=== PATIENT | female | born 1975 | race Caucasian/White ===

== ENCOUNTER → 2021-03-16 15:50 | Outpatient (CLI) | payer BC, SELFPAY ==
--- NOTE | 2021-03-16 | DI.MRI.S_ITS ---
PROCEDURE: MR LUMBAR SPINE WO CON INDICATIONS: lumbar pain TECHNIQUE: Noncontrast sagittal T1 spin echo and T2 fast echo, sagittal STIR, axial T1 and T2 fast spin echo through the lumbar spine. In cases with scoliosis, additional coronal T2 fast spin echo may be performed. COMPARISON: [facility] [place], CR, XR LUMBAR SPINE WITH OLBIQUES PLUS FLEXION EXTENSION, 03/01/2021, 14:39. FINDINGS: Image quality: Excellent. Alignment and Curvature: 5 lumbar type vertebral bodies are present by plain film. Loss of normal lumbar lordosis is present. Mild grade 1 retrolisthesis of L4 on L5. Bone Marrow: Marrow is of normal overall signal. No acute vertebral body compression fractures. Minimal reactive signal within the endplates adjacent to the L3-L4 and L4-L5 intervertebral discs. Spinal Cord: Conus medullaris terminates at the L2-L3 disc space level. Visualized cord demonstrates normal signal and size. Paraspinous Soft Tissues: No paravertebral masses. T12-L1: Normal appearance. L1-L2: Normal appearance. L2-L3: Normal appearance. L3-L4: Mild disc desiccation. Mild facet and ligamentum flavum hypertrophy. Mild canal stenosis. Mild bilateral foraminal stenosis. L4-L5: Mild disc desiccation and diffuse disc bulge. Mild facet and ligamentum flavum hypertrophy. Mild canal stenosis. Mild bilateral foraminal stenosis. L5-S1: Mild disc desiccation and diffuse disc bulge. No significant canal stenosis. Moderate subarticular foraminal stenosis. IMPRESSION: 1. Multilevel degenerative disc and facet disease, as well as ligamentum flavum hypertrophy and epidural lipomatosis. 2. Mild multilevel canal stenosis. 3. Multilevel foraminal stenosis, worst at L4-L5 bilaterally where there are moderate foraminal stenosis present. Dictated by: Ai Short M.D. on 03/16/2021 at 16:42 Approved by: Ai Short M.D. on 03/16/2021 at 16:44
== END ==
PROVIDERS: Referring Provider Physical Medicine & Rehabilitation Pain Medicine; Visit Provider Physical Medicine & Rehabilitation Pain Medicine
DX: M51.36 Other intervertebral disc degeneration, lumbar region (principal); M47.26 Other spondylosis with radiculopathy, lumbar region; M48.061 Spinal stenosis, lumbar region without neurogenic claudication
CPT/HCPCS: 72148

== ENCOUNTER 2021-03-16 18:30 | Emergency (ER) | payer BC, SELFPAY ==
[2021-03-16 18:38] VITALS: BP 131/60; PULSE 76; RESP 16; TEMP 36.6; O2SAT 97
--- NOTE | 2021-03-16 19:49 | ED_ITS ---
HPI - Back Pain/Injury General Chief Complaint: Back Pain/Injury Stated Complaint: LOW BACK PAIN Time Seen by Provider: 03/16/21 18:33 Source: patient Mode of arrival: Ambulatory Limitations: no limitations History of Present Illness HPI Narrative: 45-year-old female nonsmoker presents with a chief complaint of an exacerbation of her chronic back pain over the past few days. She has been having issues ever since weightlifting about 1 year ago in which she suffered bulging discs and radicular symptoms that had been managed by local orthopedist. A few days ago she was bending, lifting and twisting when she felt a pull in her back and now has significant lower back pain with radiation into her left leg. Motion worsens the pain and rest improves it. She denies any numbness, tingling or weakness. She denies any footdrop or trouble controlling bowel or bladder. She takes no blood thinners, denies any history of IV drug abuse. She had obtained an outpatient lumbar MRI just prior to her arrival. She is not currently taking any medications for her pain MD Complaint: back pain Onset (ago): day(s) Duration: constant Similar Symptoms Previously: Yes Location: lumbar spine Severity: severe Quality: sharp and stabbing Radiation: left leg Severity scale (1-10): 7 Exacerbating factors: movement Context: while lifting, turning/twisting and bending Associated symptoms: difficulty walking Related Data Previous Rx's Medication Instructions Recorded gabapentin 300 mg PO BEDTIME #14 cap 03/16/21 hydrocodone-acetaminophen 1 tab PO Q4-6H PRN #10 tab 03/16/21 ketorolac 10 mg PO Q6H PRN #14 tab 03/16/21 methylprednisolone [Medrol (Mayank)] See Rx Instructions .ROUTE 03/16/21 .COMPLEX #21 ea Review of Systems Constitutional Constitutional: Denies chills, Denies fatigue, Denies fever(s), Denies frequent falls, Denies lethargy and Denies weakness Eyes Eyes: Denies change in vision, Denies eye discharge, Denies irritation and Denies loss of vision ENT Ears, Nose, Mouth, and Throat: Denies change in voice, Denies dizziness, Denies neck pain, Denies sore throat and Denies throat swelling Cardiovascular Cardiovascular: Denies chest pain, Denies irregular heart rhythm, Denies lighth eadedness, Denies palpitations, Denies dyspnea, Denies dyspnea on exertion and Denies orthopnea Respiratory Respiratory: Denies cough, Denies dyspnea, Denies dyspnea on exertion and Denies wheezing Gastrointestinal Gastrointestinal: Denies abdominal pain, Denies change in bowel habits, Denies diarrhea, Denies nausea and Denies vomiting Musculoskeletal Musculoskeletal: Reports back pain, Denies neck pain and Denies numbness Integumentary/Breasts Skin/Breast: Denies pruritus, Denies erythema, Denies rash and Denies wounds Neurologic Neurologic: Denies behavioral changes, Denies confusion, Denies dizziness, Denies frequent falls, Denies loss of vision, Denies numbness and Denies weakness Psychiatric Psychiatric: Denies anxiety, Denies behavioral changes, Denies confusion, Denies depression, Denies homicidal ideation and Denies suicidal ideation Endocrine Endocrine: Denies fatigue, Denies flushing and Denies palpitations Hematologic/Lymphatic Hematologic/Lymphatic: Denies easy bruising Allergic/Immunologic Allergic/Immunologic: Denies urticaria, Denies throat swelling and Denies wheezing Patient History Smoking Status: Never smoker alcohol intake frequency: 0-2 drinks per day Substance Use Type: does not use Exam Narrative Exam Narrative: GEN: AOx3 and in mild distress EYES: Pupils are equal, round, and reactive to light and accommodation. Extraoccular muscles are intact bilaterally. There is no subconjunctival hemorrhage or exudate. CHEST: Lungs are clear to auscultation bilaterally and free of wheezes, rales, or rhonchi. Heart rate is regular rhythm, there are no murmurs, clicks, rubs, or gallops. There is no chest wall tenderness. ABD: Abdomen is soft and nontender. There is no guarding or rebound. Bowel sounds are normal in all 4 quadrants. There is no mass or organomegaly. BACK: pulper tender but free of any obvious external abnormalities. Patient exam notes decreased range of motion and muscle spasm, but no CVA tenderness, or vertebral point tenderness. There are no symptoms of cauda equina such as saddle anesthesia, and decreased reflexes, decreased sensation or strength. EXT: Full painless ROM of all extremities with no loss of sensation or strength. SKIN: Warm, pink, and dry. No erythema or rash Initial Vital Signs Initial Vital Signs: Vital Signs Temperature 97.9 F 03/16/21 18:38 Pulse Rate 76 03/16/21 18:38 Respiratory Rate 16 03/16/21 18:38 Blood Pressure 131/60 03/16/21 18:38 Pulse Oximetry 97 03/16/21 18:38 Course Orders Ordered: Discontinued Medications Hydrocodone Bitart/Acetaminophen (Hydrocodone/Acet 5/325 Prepack) 1 bottle MISC SEEINSTR ONE Stop: 03/16/21 19:56 Last Admin: 03/16/21 20:06 Dose: 1 bottle Documented by: KRISTINE Hydromorphone HCl (Hydromorphone 1 Mg Inj) 1 mg IM NOW ONE Stop: 03/16/21 19:56 Last Admin: 03/16/21 20:06 Dose: 1 mg Documented by: KRISTINE Vital Signs Vital signs: Vital Signs - 8 hr 03/16/21 20:13 Pulse Rate 78 Respiratory Rate 18 Blood Pressure 120/71 Pulse Oximetry 100 MDM - Back Pain/Injury Imaging Data Lumbar MRI: Radiologist's Impression: Kassie Alfaro 45 F [address] [id number] Resonance ReportSigned Patient: KASSIE ALFAROMR#: [id number]: 1975Acct:[id number]/Sex: 45 / FDate of Service: 03/16/21Loc: MRIAccession Number: [id number] Procedure: MR lumbar spine wo con Ordering Provider: Ab Terry MD PROCEDURE: MR LUMBAR SPINE WO CON INDICATIONS: lumbar pain TECHNIQUE: Noncontrast sagittal T1 spin echo and T2 fast echo, sagittal STIR, axial T1 and T2 fast spin echo through the lumbar spine. In cases with scoliosis, additional coronal T2 fast spin echo may be performed. COMPARISON: [facility] [place], CR, XR LUMBAR SPINE WITH OLBIQUES PLUS FLEXION EXTENSION, 03/01/2021, 14:39. FINDINGS: Image quality: Excellent. Alignment and Curvature: 5 lumbar type vertebral bodies are present by plain film. Loss of normal lumbar lordosis is present. Mild grade 1 retrolisthesis of L4 on L5. Bone Marrow: Marrow is of normal overall signal. No acute vertebral body compression fractures. Minimal reactive signal within the endplates adjacent to the L3-L4 and L4-L5 intervertebral discs. Spinal Cord: Conus medullaris terminates at the L2-L3 disc space level. Visualized cord demonstrates normal signal and size. Paraspinous Soft Tissues: No paravertebral masses. T12-L1: Normal appearance. L1-L2: Normal appearance. L2-L3: Normal appearance. L3-L4: Mild disc desiccation. Mild facet and ligamentum flavum hypertrophy. Mild canal stenosis. Mild bilateral foraminal stenosis. L4-L5: Mild disc desiccation and diffuse disc bulge. Mild facet and ligamentum flavum hypertrophy. Mild canal stenosis. Mild bilateral foraminal stenosis. L5-S1: Mild disc desiccation and diffuse disc bulge. No significant canal stenosis. Moderate subarticular foraminal stenosis. IMPRESSION: 1. Multilevel degenerative disc and facet disease, as well as ligamentum flavum hypertrophy and epidural lipomatosis. 2. Mild multilevel canal stenosis. 3. Multilevel foraminal stenosis, worst at L4-L5 bilaterally where there are moderate foraminal stenosis present. Dictated by: Ai Short M.D. on 03/16/2021 at 16:42 Approved by: Ai Short M.D. on 03/16/2021 at 16:44 [facility] Narrative Medical decision making narrative: Patient with known back trouble seems to have re-injured herself. She has no red flag findings concerning for neuro surgical emergency such as saddle anesthesia, loss of control of bowel or bladder, footdrop, lower extremity weakness, IV drug abuse, fever, use of blood thinners. She has just completed a lumbar MRI which shows multilevel disc disease and facet disease. Extensive return precautions given to the patient, questions answered to her apparent satisfaction Discharge Plan Departure Patient Disposition: Home Clinical Impression: Acute left lumbar radiculopathy Instructions: DI for Lumbar Radiculopathy Activity Restrictions/Additional Instructions: *You have been diagnosed with [acute on chronic lumbar pain with radiculopathy.] *What to do: *Take medications as directed: Prescriptions electronically transmitted to [facility] ([place], [place]) at your request *Follow up with your primary care provider in 2-3 days, call for an appointment. Let them know you were seen in the Emergency Department and that we ask that you be seen in follow up *Return to ER if you should have any new, worsening or concerning symptoms, such as [increasing pain, weakness, trouble controlling bowel or bladder, fever greater than 101 F or other bothersome symptoms You have been prescribed narcotic medications. While on these medications you cannot drive or operate heavy machinery. Additionally you cannot sign legal documents or perform any duties such as this. Many people get constipated on narcotic medications so it would be advisable to discuss stool softeners with the pharmacist when you pickle processor your prescription. Please understand that we cannot provide further refills of narcotics or controlled substances through the ED and your pain management will need to be through your Primary Care Provider] Prescriptions: New hydrocodone-acetaminophen 5-325 mg tablet 1 tab PO Q4-6H PRN (Reason: pain) Qty: 10 RF: 0 ketorolac 10 mg tablet 10 mg PO Q6H PRN (Reason: pain) Qty: 14 RF: 0 gabapentin 300 mg capsule 300 mg PO BEDTIME Qty: 14 RF: 0 methylprednisolone [Medrol (Mayank)] 4 mg tablets,dose pack See Rx Instructions .ROUTE .COMPLEX Qty: 21 RF: 0
[2021-03-16] MEDS: HYDROMORPHONE 1 MG INJ IM (20:06)
[2021-03-16] MEDS: HYDROCODONE/ACET 5/325 PREPACK 1 BOTTLE MISC (20:06)
[2021-03-16 20:13] VITALS: BP 120/71; PULSE 78; RESP 18; O2SAT 100
== END 2021-03-16 20:15 | disposition home or self-care (01) ==
PROVIDERS: Emergency Provider Emergency Medicine
DX: M54.16 Radiculopathy, lumbar region (principal)
CPT/HCPCS: 96372; 99283; J1170

== ENCOUNTER → 2022-07-06 15:50 | Outpatient (CLI) | payer BC, SELFPAY ==
--- NOTE | 2022-07-06 15:56 | DI.MRI.S_ITS ---
PROCEDURE: MR LUMBAR SPINE WO CON INDICATIONS: RADICULOPATHY, LUMBAR REGION TECHNIQUE: Noncontrast sagittal T1 spin echo and T2 fast echo, sagittal STIR, and T2 fast spin echo through the lumbar spine. In cases with scoliosis, additional coronal T2 fast spin echo may be performed. COMPARISON: [facility], MR, MR LUMBAR SPINE WO CON, 03/16/2021, 16:06. FINDINGS: Image quality: Excellent. Alignment and Curvature: 5 lumbar type vertebral bodies are present by plain film. There is loss of normal lumbar lordosis. 2 mm of retrolisthesis of L4 on L5, as before. Bone Marrow: Marrow is of normal overall signal. No acute vertebral body compression fractures. Mild reactive signal throughout the endplates of the lumbar spine. Hemangioma within the right L3 pedicle, as before. Spinal Cord: Conus medullaris terminates at the mid L2 level. Visualized cord demonstrates normal signal and size. Paraspinous Soft Tissues: No paravertebral masses. T12-L1: Normal appearance. L1-L2: Normal appearance. L2-L3: Normal appearance. L3-L4: Mild disc desiccation. Mild facet and ligamentum flavum hypertrophy. Mild canal stenosis. Mild bilateral foraminal stenosis. No significant change. L4-L5: Mild disc desiccation. Mild diffuse disc bulge. Mild facet and ligamentum flavum hypertrophy. Mild canal stenosis and mild bilateral foraminal stenosis. No significant change. L5-S1: Mild disc desiccation and diffuse disc bulge. No significant canal stenosis. Moderate subarticular foraminal stenosis bilaterally. No significant change. IMPRESSION: 1. Multilevel degenerative disc and facet disease, as well as ligamentum flavum hypertrophy and epidural lipomatosis. 2. Mild multilevel canal stenoses. 3. Multilevel foraminal stenoses, worst at L4-L5 where there are moderate foraminal stenoses bilaterally. Dictated by: Ai Short M.D. on 07/06/2022 at 16:43 Transcribed by: YAZMIN on 07/06/2022 at 16:46 Approved by: Ai Short M.D. on 07/06/2022 at 17:01
== END ==
PROVIDERS: PCP Obstetrics & Gynecology; Referring Provider Physical Medicine & Rehabilitation; Visit Provider Physical Medicine & Rehabilitation
DX: M51.16 Intervertebral disc disorders with radiculopathy, lumbar region (principal); M51.17 Intervertebral disc disorders with radiculopathy, lumbosacral region; M47.26 Other spondylosis with radiculopathy, lumbar region; M47.27 Other spondylosis with radiculopathy, lumbosacral region; M48.061 Spinal stenosis, lumbar region without neurogenic claudication; M48.07 Spinal stenosis, lumbosacral region
CPT/HCPCS: 72148

== ENCOUNTER → 2023-05-29 16:07 | Outpatient (CLI) | payer OTHER, SELFPAY ==
--- NOTE | 2023-05-29 | DI.MG.S_ITS ---
BILATERAL DIGITAL SCREENING MAMMOGRAM 3D/2D WITH CAD: 05/29/2023 CLINICAL: Baseline exam. Routine screening. No prior exams were available for comparison. Both breasts are heterogeneously dense, which may obscure small masses (category c / 51-75% glandular tissue). Current study was also evaluated with a Computer Aided Detection (CAD) system. There is an asymmetry in the right breast central to the nipple in the retroareolar region. There is nipple retraction associated with the asymmetry. No other significant masses, calcifications, or other findings are seen in either breast. IMPRESSION: INCOMPLETE: NEEDS ADDITIONAL IMAGING EVALUATION The asymmetry in the right breast is indeterminate. Additional views with possible ultrasound are recommended. Based on the Tyrer Cuzick model (a risk assessment model) the patient's lifetime risk is 14.4% and her 10 year risk is 3.3%. According to the ACR, ACS, and NCCN guidelines, an annual breast MRI exam along with mammogram is recommended if the patient's lifetime risk is 20% or greater. This exam was interpreted at Station ID: [id number]. NOTE: For mammograms, a report in lay terms will be sent to the patient. Approximately 15% of breast malignancies will not be visualized mammographically. In the management of a palpable breast mass, a negative mammogram must not discourage biopsy of a clinically suspicious lesion. Electronically Signed By: Evelyn nascimento/osbaldo:05/30/2023 11:12:34 letter sent: Additional Imaging Needed ACR BI-RADS Category 0: Incomplete [id number]
--- NOTE | 2023-05-29 | DI.US.S_ITS ---
PROCEDURE: US PELVIC COMPLETE INDICATIONS: ROUTINE SCREENING;PELVIC AND PERINEAL PAIN TECHNIQUE: Real-time scanning was performed of the pelvic organs, with image documentation. Additional endovaginal scanning was necessary due to incomplete visualization of the adnexal and endometrial structures by transabdominal scanning. COMPARISON: [facility], US, US PELVIC COMPLETE, 12/20/2021, 15:56. FINDINGS: Uterus: Uterus is anteverted and normal in size at 8.5 x 7.8 x 4.5 cm. The myometrium is heterogeneous. The endometrium is not well evaluated. Several uterine fibroids. For example: Mid fundal intramural measuring 4.8 x 4.3 x 3.9 cm. Left anterior intramural measuring 2.8 x 2.5 x 2.2 cm. Left posterior intramural measuring 2.5 x 2.5 x 2 cm. Ovaries: Ovaries are not identified. No obvious cystic lesion. Other: No pathologic free abdominal or pelvic fluid. IMPRESSION: 1. Enlarged uterus with several fibroids. Largest fibroid measures 4.8 cm. 2. Ovaries are not seen. No free fluid. We strive to produce accurate, complete, and clear reports of imaging services. To assist us in improving patient care, this report was composed using standard report templates and voice recognition software. Therefore, it may contain abnormal punctuation, insertions and/or omissions. Occasional wrong-word or sound-alike substitutions may occur. Though we review the report and make efforts to correct it, we do recommend that the report be read carefully in proper context to recognize any text inaccuracies. Dictated by: David Reyes M.D. on 05/30/2023 at 14:22 Approved by: David Reyes M.D. on 05/30/2023 at 14:26
== END ==
PROVIDERS: PCP Obstetrics & Gynecology; Referring Provider Naturopath; Visit Provider Naturopath
DX: R10.2 Pelvic and perineal pain (principal); Z12.31 Encounter for screening mammogram for malignant neoplasm of breast; D25.1 Intramural leiomyoma of uterus
CPT/HCPCS: 76830; 76856; 77063; 77067

== ENCOUNTER 2023-10-02 17:34 | Emergency (ER) | payer OTHER, SELFPAY ==
[2023-10-02] VITALS (7 sets, daily range): BP systolic 97–139; BP diastolic 60–70; PULSE 61–76; RESP 16–21; TEMP 36.7; O2SAT 95–99; BMI 23.3
--- NOTE | 2023-10-02 17:42 | DI.RAD.S_ITS ---
PROCEDURE: XR CHEST 1V INDICATIONS: chest pain TECHNIQUE: One view of the chest was acquired. COMPARISON: None. FINDINGS: Surgical changes and devices: None. Lungs and pleura: Lungs are clear. No pleural effusions or pneumothorax. Mediastinum: Mediastinal contours appear normal. Heart size is normal. Bones and chest wall: No suspicious bony lesions. Overlying soft tissues appear unremarkable. IMPRESSION: No acute process. Dictated by: Ai Short M.D. on 10/02/2023 at 18:16 Approved by: Ai Short M.D. on 10/02/2023 at 18:16
--- NOTE | 2023-10-02 18:10 | PC.NURSE ---
Pt reports that she woke up this morning at about 0300 because she felt sudden onset cp. pt denies any sob at the time of incident or at this time. pt also reports that the bad radiates to her abd. a&ox4.
[2023-10-02 18:17] LABS: Prothrombin Time 11.6 SECONDS (10.1-12.7)
[2023-10-02] MEDS: ASPIRIN 81 MG CHEW TAB 324 MG PO (18:17)
[2023-10-02 18:19] LABS: PTT Partial Thromboplastin Tim 34 SECONDS (26-36)
[2023-10-02 18:20] LABS: Add Manual Diff / Slide Review NO; Basophils Absolute Auto 0 /uL (0-100); Basophils Percent Auto 0.9 % (0-2); Eosinophils Absolute Auto 100 /uL (0-450); Eosinophils Percent Auto 1.1 % (2-4); Hematocrit 40.7 % (36-46); Hemoglobin 13.9 g/dL (12.0-16.0); Lymphocytes Absolute Auto 2000 /uL (1100-4500); Lymphocytes Percent Auto 40.9 % (25-40); Mean Corpuscular HGB Conc 34.1 % (30-36); Mean Corpuscular Hemoglobin 31.6 PG (26-34); Mean Corpuscular Volume 92.6 fL (80-100); Monocytes Absolute Auto 300 /uL (0-900); Monocytes Percent Auto 6.5 % (3-14); Neutrophils Absolute Auto 2500 /uL (1500-7000); Neutrophils Percent Auto 50.6 % (50-75); Platelet Count 208 X10^3/uL (150-400); Red Cell Distribution Width 12.7 % (11.6-14.8)
[2023-10-02 18:26] LABS: Alanine Aminotransferase 17 IU/L (<35); Albumin Globulin Ratio 1.7 (1.0-2.8); Alkaline Phosphatase 68 U/L (38-126); Aspartate Aminotransferase 24 IU/L (14-36); BUN Creatinine Ratio 19.6 (6-22); Bilirubin Total 0.7 mg/dL (0.2-1.3); Blood Urea Nitrogen 11 mg/dL (7-17); Calcium 9.9 mg/dL (8.4-10.2); Carbon Dioxide 28 mmol/L (22-32); Chloride 101 mmol/L (98-107); Creatine Kinase 150 U/L (30-135); Estimated Glomerular Filt Rate > 60 mL/min (>60); Glucose 128 mg/dL (70-100); HEMOLYSIS < 15 (0-50); Lipase 58 U/L (23-300); Magnesium 1.9 mg/dL (1.6-2.3); Potassium 3.5 mmol/L (3.4-5.1); Sodium 138 mmol/L (137-145)
[2023-10-02 18:37] LABS: Troponin I < 0.012 ng/mL (0.01-0.034)
--- NOTE | 2023-10-02 21:16 | ED_ITS ---
HPI - Chest Pain General Chief Complaint: Chest Pain Stated Complaint: chest pain/pressure/hard to breathe Time Seen by Provider: 10/02/23 18:09 Mode of arrival: Family Vehicle History of Present Illness HPI narrative: 48-year-old woman who leads an active lifestyle, focuses on healthy eating and risk reduction techniques and sees a finishing operator for her primary care. She is currently on an estradiol patch and has no specific complaints or concerns until last night. She was awakened with some pressure/tightness over the center portion of her chest that has persisted over the course of the day today. It is not seemingly related to activity, food, positional changes. She has not noticed fevers, cough, chills. She notes that she does have problems with intermittent constipation and diarrhea and is doing all appropriate interventions with diet and probiotics to try to further manage this. She does note that she was able to exercise without difficulty including doing pushups yesterday Related Data Previous Rx's Medication Instructions Recorded estradiol 0.0375 mg/24 hr weekly 1 patch transdermal QWEEK 07/05/23 transdermal patch Menopause symptoms #4 ea Allergies Allergy/AdvReac Type Severity Reaction Status Date / Time No Known Drug Allergies Allergy Unverified 10/02/23 17:41 Review of Systems Review of Systems Narrative: Pertinent positive and negative findings as per HPI Patient History Medical History Anxiety Herniated disc Chronic back pain Irregular menstrual cycle (~2018) Human papilloma virus (~2019) Ovarian cyst Endometriosis (~2009) Abnormal Pap smear of cervix (~2019) Cystic fibrosis Constipation Irritable bowel syndrome Colon polyps AAA (abdominal aortic aneurysm) Ovarian cancer (~2017) Fibroid uterus (~2019) Surgical History Anesthesia History of laparoscopy (~2017) History of endometrial ablation (~2019) Family History Father Colon cancer Mental health problem Mother History of heart disease Hypertension Grandmother Cancer Grandfather Cancer Social History Smoking Status: Never smoker Smoking Status: Never smoker alcohol intake frequency: other Substance Use Type: does not use Exam Initial Vital Signs Initial Vital Signs: Vital Signs Temperature 98.0 F 10/02/23 17:37 Pulse Rate 76 10/02/23 17:37 Respiratory Rate 16 10/02/23 17:37 Blood Pressure 139/65 10/02/23 17:37 Pulse Oximetry 99 10/02/23 17:37 Oxygen Delivery Method Room Air 10/02/23 17:37 General: Healthy appearing, in no acute distress. Able to give a complete and coherent history. Well-nourished well-developed HEENT: Moist mucous membranes, normal sclera with reactive pupils, Neck: No JVD, supple Respiratory: Lungs are clear to auscultation, no wheezing no rales no rhonchi. Full and symmetrical air movement Chest: Minor tenderness to palpation along costochondral margins bilaterally that does completely reproduce the pain of which she complains Cardiac: Regular rate and rhythm no murmurs no bruits Abdomen: Soft, nontender, good bowel tones, no flank pain Skin: Warm and dry, no rashes Neurologic: Grossly neurologically intact with no obvious asymmetries or abnormalities Extremities: No trauma, well perfused Psych: Cooperative, appropriate insight and affect Course Orders Ordered: ED Orders 10/02/23 17:42 XR chest 1V Stat EKG-12 Lead Stat 10/02/23 18:02 Complete Blood Count AUTO DIFF Stat Comprehensive Metabolic Panel Stat Lipase Stat Magnesium Stat PTT Partial Thromboplastin Riaz Stat Prothrombin Time INR Stat Troponin & CK Cardiac Panel Stat Discontinued Medications Aspirin (Aspirin 81 Mg Chew Tab) 324 mg PO NOW ONE Stop: 10/02/23 17:43 Last Admin: 10/02/23 18:17 Dose: 324 mg Documented By: MPO Vital Signs Vital signs: Vital Signs - 8 hr 10/02/23 17:37 10/02/23 20:00 10/02/23 20:15 Temperature 98.0 F Pulse Rate 76 61 61 Respiratory Rate 16 21 20 Blood Pressure 139/65 Pulse Oximetry 99 98 Oxygen Delivery Method Room Air 10/02/23 20:15 10/02/23 20:30 10/02/23 20:30 Temperature Pulse Rate 61 Respiratory Rate 20 Blood Pressure 100/65 97/63 Pulse Oximetry 95 Oxygen Delivery Method 10/02/23 21:00 10/02/23 21:00 Temperature Pulse Rate 61 Respiratory Rate 20 Blood Pressure 98/60 Pulse Oximetry 97 Oxygen Delivery Method MDM - Chest Pain Lab Data 10/02/23 18:02 10/02/23 18:02 Labs: Lab Results 10/02/23 Range/Units 18:02 WBC 5.0 (4.5-11.0) X10^3/uL RBC 4.40 (4.0-5.2) X10^6/uL Hgb 13.9 (12.0-16.0) g/dL Hct 40.7 (36-46) % MCV 92.6 (80-100) fL MCH 31.6 (26-34) PG MCHC 34.1 (30-36) % RDW 12.7 (11.6-14.8) % Plt Count 208 (150-400) X10^3/uL Neut % (Auto) 50.6 (50-75) % Lymph % (Auto) 40.9 H (25-40) % Bracken % (Auto) 6.5 (3-14) % Eos % (Auto) 1.1 L (2-4) % Baso % (Auto) 0.9 (0-2) % Neut # (Auto) 2500 (9697-3361) /uL Lymph # (Auto) 2000 (4571-2803) /uL Bracken # (Auto) 300 (0-900) /uL Eos # (Auto) 100 (0-450) /uL Baso # (Auto) 0 (0-100) /uL PT 11.6 (10.1-12.7) SECONDS INR 1.0 (0.9-1.3) APTT 34 (26-36) SECONDS Sodium 138 (137-145) mmol/L Potassium 3.5 (3.4-5.1) mmol/L Chloride 101 (98-107) mmol/L Carbon Dioxide 28 (22-32) mmol/L BUN 11 (7-17) mg/dL Creatinine 0.56 (0.52-1.04) mg/dL Estimated GFR > 60 (>60) mL/min BUN/Creatinine Ratio 19.6 (6-22) Glucose 128 H (70-100) mg/dL Calcium 9.9 (8.4-10.2) mg/dL Magnesium 1.9 (1.6-2.3) mg/dL Total Bilirubin 0.7 (0.2-1.3) mg/dL AST 24 (14-36) IU/L ALT 17 (<35) IU/L Alkaline Phosphatase 68 (38-126) U/L Total Creatine Kinase 150 H (30-135) U/L Troponin I < 0.012 (0.01-0.034) ng/mL Total Protein 8.0 (6.3-8.2) g/dL Albumin 5.0 (3.5-5.0) g/dL Globulin 3.0 (1.7-4.1) g/dL Albumin/Globulin Ratio 1.7 (1.0-2.8) Lipase 58 (23-300) U/L MDM Narrative Medical decision making narrative: CC: Central chest pain and pressure Data collected from: patient, Differential considered: Cardiac chest pain, musculoskeletal pain, constipation, esophageal abnormalities Exam documented above, pertinent findings include: Pain is reproducible with palpation along caused sternal borders. Remainder of exam is benign Lab Test results independently reviewed as above. Pertinent findings: CBC is unremarkable Chemistries are reassuring Total creatinine kinase is slightly elevated at 150 with normal upper limit being 135 Initial troponin is undetectable Independently reviewed EKG shows sinus rhythm at a rate of 84. Some nonspecific anterior ST changes without overt ischemia Imaging studies independently reviewed: Chest x-ray is entirely reassuring Treatments: IV Toradol Discussion: 48-year-old woman with almost 20 hours of chest pain and pressure with unremarkable EKG and negative troponin. Remainder of blood work is reassuring. She does not have a significant family history of cardiac disease. She is currently working with a finishing operator, has not appropriate BMI of 23, exercises regularly. With pain reproduced by palpation along the sternal borders I do not think that this has a cardiac etiology or even a GI etiology. She is given a shot of Toradol and suggested that she try ibuprofen or Tylenol. She does already have an outpatient appointment with Cardiology scheduled and I encouraged her to keep this for additional discussion and help with cardiac risk stratification. This point she is safe for discharge Discharge Plan Departure Patient Disposition: Home Clinical Impression: Acute costochondritis Instructions: DI for Costochondritis Activity Restrictions/Additional Instructions: Thank you for coming in today Your symptoms were very appropriate for a more thorough evaluation. Fortunately all of your blood work was reassuring. I am not seeing any evidence of acute heart attack, cardiomyopathy, pneumonia, collapsed lungs or other life- threatening things that would be causing this pressure that you are experiencing. With the tenderness along your breastbone on both sides, I suspect part of the pain is related to costochondritis. This is inflammation in the joints where the ribs operations supervisor chemical cleaning to the breastbone. In the emergency department you are given a dose of Toradol to see if this might be helpful over the course of the evening. Using 400 mg of ibuprofen (2 lqra-[id number]-[id number] pills) and 1 Tylenol every 6 hours can be very helpful in controlling pain. I do agree with continuing the outpatient workup to see a 911 emergency dispatcher and I think Dr. Black is an outstanding choice. Based on what you are telling me you been doing with your overall health it sounds like your finishing operator is also doing an excellent job as a primary care provider. If you find that you are getting worse or develop any new symptoms, please feel free to return to the emergency department for further evaluation. Prescriptions: No Action estradiol 0.0375 mg/24 hr patch weekly 1 patch transdermal QWEEK Qty: 4 1RF Referrals: Miscellaneous,Doctor, [Primary Care Provider] - Stand Alone Forms: Patient Portal/API
[2023-10-02] MEDS: KETOROLAC 30 MG/ML VIAL 15 MG IV (21:36)
== END 2023-10-02 21:43 | disposition home or self-care (01) ==
PROVIDERS: Emergency Medicine; Emergency Provider Emergency Medicine
DX: M94.0 Chondrocostal junction syndrome [Tietze] (principal)
CPT/HCPCS: 36415; 71045; 80053; 82550; 83690; 83735; 84484; 85025; 85610; 85730; 93005; 93010; 96374; 99284; J1885

== ENCOUNTER → 2024-05-13 14:59 | Outpatient (CLI) | payer OTHER, SELFPAY ==
--- NOTE | 2024-05-13 15:00 | DI.RAD.S_ITS ---
PROCEDURE: XR FOOT LT MIN 3V INDICATIONS: Left foot pain TECHNIQUE: 3 views of the foot were acquired. COMPARISON: [facility], CR, XR ANKLE LT MIN 3V, 05/13/2024, 14:05. FINDINGS: Bones: Question fracture in the superior aspect of the anterior process of the calcaneus. Mild metatarsus adductus and hallux valgus. Mild degenerative joint disease at the 1st metatarsophalangeal joint. No dislocations. No suspicious bony lesions. Soft tissues: No tibiotalar joint effusion. Achilles tendon appears normal. IMPRESSION: 1. Question fracture of the anterior process of calcaneus. 2. Mild degenerative joint disease. Dictated by: Syeda Mitchell M.D. on 05/13/2024 at 16:29 Approved by: Syeda Mitchell M.D. on 05/13/2024 at 16:30
--- NOTE | 2024-05-13 15:00 | DI.RAD.S_ITS ---
PROCEDURE: XR ANKLE LT MIN 3V INDICATIONS: Left foot pain TECHNIQUE: 3 views of the ankle were acquired. COMPARISON: [facility], , XR FOOT LT MIN 3V, 05/13/2024, 14:07. FINDINGS: Bones: Question nondisplaced fracture in the anterior process of calcaneus. No dislocations. Ankle mortise is normally aligned. No suspicious bony lesions. Soft tissues: No tibiotalar joint effusion. Achilles tendon appears normal. IMPRESSION: Question nondisplaced fracture in the anterior process of calcaneus. Consider advanced imaging such as CT or MRI for further evaluation. Dicted by: Syeda Mitchell M.D. on 05/13/2024 at 16:25 Approved by: Syeda Mitchell M.D. on 05/13/2024 at 16:28
== END ==
PROVIDERS: Referring Provider Nurse Practitioner Family; Visit Provider Nurse Practitioner Family
DX: M19.072 Primary osteoarthritis, left ankle and foot (principal); M79.672 Pain in left foot
CPT/HCPCS: 73610; 73630

== ENCOUNTER → 2024-08-20 15:47 | Outpatient (CLI) | payer OTHER, SELFPAY ==
--- NOTE | 2024-08-20 15:48 | DI.US.S_ITS ---
PROCEDURE: US PELVIC COMPLETE INDICATIONS: FIBROIDS TECHNIQUE: Real-time scanning was performed of the pelvic organs, with image documentation. Additional endovaginal scanning was necessary due to incomplete visualization of the adnexal and endometrial structures by transabdominal scanning. COMPARISON: [facility], US, US PELVIC COMPLETE, 05/29/2023, 16:30. FINDINGS: Uterus: Uterus is anteverted and enlarged in size at 12.2 x 8.0 x 6.4 cm. The myometrium is heterogeneous with multiple fibroids. The endometrium measures 2 mm combined thickness in the lower uterine segment, the mid/fundal endometrium is not well seen secondary to fibroids. Multiple uterine fibroids are redemonstrated. There is a mid fundal intramural/submucosal fibroid measuring 3.8 x 3.4 x 3.2 cm, previously 4.3 x 4.8 x 3.9 cm. Right posterior intramural fibroid measuring 4.0 x 4.5 x 3.4 cm, not seen on prior. Left anterior intramural fundal fibroid measuring 2.5 x 3.8 x 1.8 cm, previously 2.5 x 2.8 x 2.2 cm. Additional smaller fibroids are noted. Ovaries: The right ovary measures 3.1 x 1.6 x 1.1 cm, with a calculated ovarian volume of 2.9 cc. The left ovary measures 5.3 x 3.6 x 2.7 cm, with a calculated ovarian volume of 27.6 cc. Left ovarian simple cyst with a daughter cyst measuring 2.5 x 3.0 x 2.2 cm. Complex thick-walled cyst in the left ovary with peripheral vascularity measuring 1.2 x 2.0 x 1.9 cm. Other: No pathologic free abdominal or pelvic fluid. IMPRESSION: Leiomyomatous uterus as above. Some fibroids are decreased in size while others are increased. The largest fibroid measures up to 4.5 cm. Complex thick-walled cyst with peripheral vascularity in the left ovary measuring 2 cm. Recommend follow-up ultrasound in 6-12 weeks. We strive to produce accurate, complete, and clear reports of imaging services. To assist us in improving patient care, this report was composed using standard report templates and voice recognition software. Therefore, it may contain abnormal punctuation, insertions and/or omissions. Occasional wrong-word or sound-alike substitutions may occur. Though we review the report and make efforts to correct it, we do recommend that the report be read carefully in proper context to recognize any text inaccuracies. Dictated by: Bashir Carrington M.D. on 08/21/2024 at 9:13 Approved by: Bashir Carrington M.D. on 08/21/2024 at 9:20
== END ==
PROVIDERS: Referring Provider Obstetrics & Gynecology; Visit Provider Obstetrics & Gynecology
DX: D25.1 Intramural leiomyoma of uterus (principal); N83.292 Other ovarian cyst, left side
CPT/HCPCS: 76830; 76856

== ENCOUNTER → 2024-10-08 15:51 | Outpatient (CLI) | payer OTHER, SELFPAY | PROVIDERS: Visit Provider Obstetrics & Gynecology | DX: R39.15 Urgency of urination (principal) | CPT/HCPCS: 87086 ==

== ENCOUNTER → 2024-10-08 16:16 | Outpatient (CLI) | payer OTHER, SELFPAY ==
[2024-10-08 18:03] LABS: Cancer Antigen 125 < 5.5 U/mL (0-35)
[2024-10-10 11:12] LABS: Human Epididymis Prot 4 38.9 pmol/L (0.0-105.2)
== END ==
PROVIDERS: Referring Provider Obstetrics & Gynecology; Visit Provider Obstetrics & Gynecology
DX: D49.59 Neoplasm of unspecified behavior of other genitourinary organ (principal); R39.15 Urgency of urination
CPT/HCPCS: 36415; 86304; 86305; 87086

== ENCOUNTER → 2024-10-29 13:56 | Outpatient (CLI) | payer OTHER, SELFPAY ==
--- NOTE | 2024-10-29 13:56 | DI.US.S_ITS ---
PROCEDURE: US PELVIC COMPLETE INDICATIONS: F/U LEFT OVARIAN CYST TECHNIQUE: Real-time scanning was performed of the pelvic organs, with image documentation. Additional endovaginal scanning was necessary due to incomplete visualization of the adnexal and endometrial structures by transabdominal scanning. COMPARISON: [facility], , US PELVIC COMPLETE, 08/20/2024, 16:16. FINDINGS: Uterus: Uterus is anteverted and diffusely enlarged and heterogeneous with numerous fibroids as was seen previously. Uterus measures 11.7 x 7.0 x 8.7 cm. Endometrial stripe is 9 mm in thickness. A right-sided posterior fibroid which is intramural measures 3.8 x 3.6 x 4.1 cm. A anterior midline intramural fibroid measures 3.7 x 3.2 x 3.9 cm. A 3rd large fibroid measures 2.9 x 2.6 x 2.6 cm. These fibroids appear stable. Ovaries: The right ovary measures 1.3 x 1.1 x 1.0 cm cm, with a calculated ovarian volume of 0.74 cc. The left ovary measures 2.9 x 2.2 x 1.2 cm, with a calculated ovarian volume of 4.0 cc. The ovaries have a normal sonographic appearance. A 1.4 x 0.8 x 1.3 cm simple appearing cyst is seen in the left ovary. Previously a complex cyst was noted which is no longer identified. No adnexal masses are seen. Other: No pathologic free abdominal or pelvic fluid. IMPRESSION: 1. Resolution of prior noted complex left ovarian cyst. A 1.4 cm simple appearing left ovarian cyst is present on this exam. 2. Large fibroid uterus stable in appearance from the prior study. We strive to produce accurate, complete, and clear reports of imaging services. To assist us in improving patient care, this report was composed using standard report templates and voice recognition software. Therefore, it may contain abnormal punctuation, insertions and/or omissions. Occasional wrong-word or sound-alike substitutions may occur. Though we review the report and make efforts to correct it, we do recommend that the report be read carefully in proper context to recognize any text inaccuracies. Dictated by: Estuardo Villaseñor M.D. on 10/29/2024 at 16:34 Approved by: Estuardo Villaseñor M.D. on 10/29/2024 at 16:39
== END ==
PROVIDERS: Referring Provider Obstetrics & Gynecology; Visit Provider Obstetrics & Gynecology
DX: D49.59 Neoplasm of unspecified behavior of other genitourinary organ (principal); D25.1 Intramural leiomyoma of uterus; N83.292 Other ovarian cyst, left side
CPT/HCPCS: 76830; 76856